=== PATIENT | female | born 1960 | race Caucasian/White ===

== ENCOUNTER 2016-11-02 10:10 | Observation (INO) | payer MEDICARE ==
[2016-11-02] VITALS (9 sets, daily range): BP systolic 129–198; BP diastolic 67–86; PULSE 48–61; RESP 15–19; TEMP 97.6–98.7; O2SAT 94–98
[~2016-11-02] VITALS: Ht 167.6 cm; Wt 85.0 kg
[2016-11-02] MEDS ORDERED: TOPR50TA PO (10:41)
[2016-11-02] MEDS ORDERED: FURO1TAB60 PO (10:41)
[2016-11-02] MEDS ORDERED: CALC500T35 (10:41)
[2016-11-02] MEDS ORDERED: BACL10TA PO (10:41)
[2016-11-02] MEDS ORDERED: SODIUM CHLORIDE 0.9% FLUSH 5 ML FLUSH IV FLUSH PRN (11:15)
--- NOTE | 2016-11-02 11:29 | PD ---
HPI Chief Complaint: Altered Mental Status Time Seen by Provider: 11:00 Travel History International Travel<30 days: No Contact w/Intl Traveler<30days: No Traveled to known affect area: No History of Present Illness HPI This is a 56-year-old female who presents via EMS for evaluation of altered mental status. According to the EMS face sheet she has a history of MS, depression, tremors, CHF, hypertension, previous CVA. On initial examination history was limited to what was written on the EMS face sheet. Apparently the patient has been acting confused since last night. The patient is unable to provide any additional history secondary to confusion. 2325: The patient's has arrived. He reports over the past 2 days the patient has been acting disoriented and confused. For example 2 days ago he found the patient sitting next to a cabinet holding her head in the cabinet and he found her yesterday sleeping on the washing machine. Symptoms were worse this morning which prompted evaluation. She does report that the patient has recently been treated for urinary tract infection, he does not know what antibiotic she was treated with. He reports that she acted similarly one time last year when she was hospitalized for a fever, he does not know what she was eventually diagnosed or treated for. He has no additional history to report at this time. The nurse received a medication list which includes several sedating medications such as baclofen, gabapentin, hydrocodone, clonazepam, lorazepam. PCP Dr. Mcpherson. The patient is a resident of [facility]. [facility] Past Medical History Medical History: Unable to Obtain Tetanus Vaccination: Unknown ?: Not Past Surgical History Surgical History: Unable to Obtain Social History Alcohol Use: No Tobacco Use: No Substance Use: No Allergies-Medications (Allergen,Severity, Reaction): Coded Allergies: Bee Sting (Verified Allergy, Unknown, 11/02/16) Reported Meds & Prescriptions Reported Meds & Active Scripts Active Reported Toprol XL (Metoprolol Succinate) 50 Mg Tab 50 Mg PO BID Calcium (Oyster Shell) 500 Mg Tab Lasix (Furosemide) 40 Mg Tab 40 Mg PO DAILY Baclofen 10 Mg Tab 10 Mg PO BID Review of Systems ROS Limitations: Altered Mental Status Except as stated in HPI: all other systems reviewed are Neg Physical Exam Narrative GENERAL: This is a well-developed well-nourished female who is somewhat drowsy and initial examination but arousable with verbal stimuli. She is alert to person but not place or time. She is able to selectively answer simple questions but when asked more detailed questioning she responds with nonsensical statements. She is able to follow simple commands. SKIN: Warm and dry. HEAD: Atraumatic. Normocephalic. EYES: Pupils equal and round. No scleral icterus. No injection or drainage. ENT: No nasal bleeding or discharge. Mucous membranes pink and moist. NECK: Trachea midline. No JVD. CARDIOVASCULAR: Regular rate and rhythm. No murmur appreciated. RESPIRATORY: No accessory muscle use. Clear to auscultation. Breath sounds equal bilaterally. GASTROINTESTINAL: Abdomen soft, non-tender, nondistended. Hepatic and splenic margins not palpable. MUSCULOSKELETAL: No obvious deformities. There is no upper or lower extremity drift. She has normal psychiatry teacher strength bilaterally. She moves all 4 extremities spontaneously. NEUROLOGICAL: Drowsy but arousable. No obvious cranial nerve deficits. Motor grossly within normal limits. No facial droop. Pupils are equal and round and reactive to light. Data Data Last Documented VS Vital Signs Date Time Temp Pulse Resp B/P Pulse Ox O2 Delivery O2 Flow Rate FiO2 11/02/16 11:33 98 Room Air 11/02/16 10:24 53 18 11/02/16 10:21 97.7 198/86 Orders Electrocardiogram (11/02/16 11:08) Ammonia (11/02/16 11:08) Complete Blood Count With Diff (11/02/16 11:08) Comprehensive Metabolic Panel (11/02/16 11:08) Creatine Kinase (Cpk) (11/02/16 11:08) Prothrombin Time / Inr (Pt) (11/02/16 11:08) Act Partial Throm Time (Ptt) (11/02/16 11:08) Troponin I (11/02/16 11:08) Thyroid Stimulating Hormone (11/02/16 11:08) Urinalysis - C+S If Indicated (11/02/16 11:08) Blood Culture (11/02/16 11:08) Chest, Single Ap (11/02/16 11:08) Ct Brain W/O Iv Contrast(Rout) (11/02/16 11:08) Blood Glucose (11/02/16 11:08) Ecg Monitoring (11/02/16 11:08) Iv Access Insert/Monitor (11/02/16 11:08) Oximetry (11/02/16 11:08) Sodium Chloride 0.9% Flush (Ns Flush) (11/02/16 11:15) Drug Screen, Random Urine (11/02/16 11:08) Lactic Acid Sepsis Protocol (11/02/16 11:18) Labs Laboratory Tests Test 11/02/16 11/02/16 11/02/16 11:10 11:15 11:30 Urine Color YELLOW Urine Turbidity CLEAR Urine pH 5.5 Urine Specific [place] 1.021 Urine Protein 30 mg/dL Urine Glucose (UA) NEG mg/dL Urine Ketones TRACE mg/dL Urine Occult Blood NEG Urine Nitrite NEG Urine Bilirubin NEG Urine Urobilinogen LESS THAN 2.0 MG/DL Urine Leukocyte Esterase NEG Urine WBC LESS THAN 1 /hpf Urine Hyaline Casts 3 /lpf Urine Granular Casts 2 /lpf Urine Mucus FEW /lpf Microscopic Urinalysis Comment CULT NOT INDICATED Urine Opiates Screen POS Urine Barbiturates Screen NEG Urine Amphetamines Screen NEG Urine Benzodiazepines Screen POS Urine Cocaine Screen NEG Urine Cannabinoids Screen NEG White Blood Count 13.3 TH/MM3 Red Blood Count 4.83 MIL/MM3 Hemoglobin 15.0 GM/DL Hematocrit 42.7 % Mean Corpuscular Volume 88.5 FL Mean Corpuscular Hemoglobin 31.0 PG Mean Corpuscular Hemoglobin 35.1 % Concent Red Cell Distribution Width 14.4 % Platelet Count 283 TH/MM3 Mean Platelet Volume 8.6 FL Neutrophils (%) (Auto) 81.2 % Lymphocytes (%) (Auto) 11.6 % Monocytes (%) (Auto) 5.9 % Eosinophils (%) (Auto) 0.7 % Basophils (%) (Auto) 0.6 % Neutrophils # (Auto) 10.8 TH/MM3 Lymphocytes # (Auto) 1.5 TH/MM3 Monocytes # (Auto) 0.8 TH/MM3 Eosinophils # (Auto) 0.1 TH/MM3 Basophils # (Auto) 0.1 TH/MM3 CBC Comment DIFF FINAL Differential Comment Prothrombin Time 10.2 SEC Prothromb Time International 0.9 RATIO Ratio Activated Partial 24.7 SEC Thromboplast Time Sodium Level 143 MEQ/L Potassium Level 3.6 MEQ/L Chloride Level 109 MEQ/L Carbon Dioxide Level 26.5 MEQ/L Anion Gap 8 MEQ/L Blood Urea Nitrogen 11 MG/DL Creatinine 0.89 MG/DL Estimat Glomerular Filtration 65 ML/MIN Rate Random Glucose 82 MG/DL Calcium Level 9.3 MG/DL Total Bilirubin 0.3 MG/DL Aspartate Amino Transf 21 U/L (AST/SGOT) Alanine Aminotransferase 23 U/L (ALT/SGPT) Alkaline Phosphatase 99 U/L Total Creatine Kinase 130 U/L Troponin I LESS THAN 0.02 NG/ML Total Protein 7.9 GM/DL Albumin 4.1 GM/DL Thyroid Stimulating Hormone 0.579 uIU/ML 3rd Gen Lactic Acid Level 0.8 mmol/L Ammonia 25 MCMOL/L [facility] Medical Decision Making Medical Screen Exam Complete: Yes Emergency Medical Condition: Yes Medical Record Reviewed: Yes Interpretation(s) Chest x-ray normal CT brain normal CBC WBC 13.3 Lactic acid normal Ammonia 25 CMP unremarkable Drug screen positive for opiates and benzodiazepines Urinalysis trace ketones, 30 protein Differential Diagnosis Polypharmacy versus sepsis versus UTI versus pneumonia versus CVA versus myxedema versus hyponatremia versus delirium versus encephalitis Narrative Course 56-year-old female presents for evaluation of altered mental status. Plans for basic lab work, CT the brain, EKG. The patient's lab work and imaging studies have been reviewed. Her urinalysis drug screen is positive for benzodiazepines and opiates which is consistent with her medication records. Her workup is otherwise unremarkable. She continues to remain quite altered according to her as well as her daughter who has recently arrived. The plan to be to admit the patient for observation. Discussed with Dr. Perez who is agreeable with admission. Diagnosis Primary Impression: Altered mental status Qualified Code: R41.82 - Altered mental status, unspecified altered mental status type Admitting Information Admitting Physician Requests: Observation Delio Preston Nov 02, 2016 11:29
--- NOTE | 2016-11-02 11:40 | RADRPT ---
EXAM DATE/TIME: 11/02/2016 11:22 [facility] COMPARISON: No previous studies available for comparison. INDICATIONS : Altered mental status. Confused and alert. RADIATION DOSE: 56.35 CTDIvol (mGy) MEDICAL HISTORY : None SURGICAL HISTORY : None. ENCOUNTER: Initial ACUITY: 1 day PAIN SCALE: 0/10 LOCATION: cranial TECHNIQUE: Multiple contiguous axial images were obtained of the head. Using automated exposure control and adj ustment of the mA and/or kV according to patient size, radiation dose was kept as low as reasonably a chievable to obtain optimal diagnostic quality images. DICOM format image data is available electro nically for review and comparison. FINDINGS: CEREBRUM: The ventricles are normal for age. No evidence of midline shift, mass lesion, hemorrhage or acute in farction. No extra-axial fluid collections are seen. POSTERIOR FOSSA: The cerebellum and brainstem are intact. The 4th ventricle is midline. The cerebellopontine angle i s unremarkable. EXTRACRANIAL: The visualized portion of the orbits is intact. SKULL: The calvaria is intact. No evidence of skull fracture. CONCLUSION: Negative for acute process. James Jackson MD FACR on November 02, 2016 at 11:38 Board Certified Radiologist. This report was verified electronically.
--- NOTE | 2016-11-02 11:41 | RADRPT ---
EXAM DATE/TIME: 11/02/2016 11:08 [facility] COMPARISON: No previous studies available for comparison. INDICATIONS : Short of breath. Dizziness. MEDICAL HISTORY : Unobtainable. SURGICAL HISTORY : Unobtainable. ENCOUNTER: Initial ACUITY: 1 day PAIN SCORE: Non-responsive. LOCATION: Bilateral chest FINDINGS: A single view of the chest demonstrates the lungs to be symmetrically aerated without evidence of mas s, infiltrate or effusion. The cardiomediastinal contours are unremarkable. Osseous structures are intact. CONCLUSION: No acute disease. James Jackson MD FACR on November 02, 2016 at 11:39 Board Certified Radiologist. This report was verified electronically.
[2016-11-02 11:51] LABS: AUTOMATED NEUTROPHIL # 10.8 TH/MM3 (1.8-7.7); BASOPHIL # 0.1 TH/MM3 (0-0.2); BASOPHIL % 0.6 % (0.0-2.0); EOSINOPHIL # 0.1 TH/MM3 (0-0.4); EOSINOPHIL % 0.7 % (0.0-4.0); HEMATOCRIT 42.7 % (35.0-46.0); HEMO FLAGS DIFF FINAL; LYMPH % 11.6 % (9.0-44.0); LYMPHOCYTE # 1.5 TH/MM3 (1.0-4.8); MEAN CELL VOLUME 88.5 FL (80.0-100.0); MEAN CORPUSCULAR HGB CONC 35.1 % (32.0-36.0); MONO % 5.9 % (0.0-8.0); NEUT % 81.2 % (16.0-70.0); PLATELET COUNT 283 TH/MM3 (150-450); RED BLOOD COUNT 4.83 MIL/MM3 (4.00-5.30); RED CELL DISTRIBUTION WIDTH 14.4 % (11.6-17.2); WHITE BLOOD COUNT 13.3 TH/MM3 (4.0-11.0)
[2016-11-02 11:56] LABS: BLOOD, URINE NEG (NEG); COMMENT (UR) CULT NOT INDICATED; CULTURE IF INDICATED CULT NOT INDICATED; GLUCOSE,URINE NEG (NEG); GRANULAR CAST, URINE 2 /lpf; HYALINE CAST, URINE 3 /lpf (RARE); KETONE, URINE TRACE mg/dL (NEG); MUCUS URINE FEW /lpf (OCC); NITRITE,URINE NEG (NEG); PH, URINE 5.5 (5.0-8.5); URINE COLOR YELLOW (YELLW/STRAW)
[2016-11-02 12:01] LABS: APTT (PATIENT) 24.7 SEC (24.3-30.1); INTERNATIONAL NORMALIZED RATIO 0.9 RATIO; PROTHROMBIN TIME - PATIENT 10.2 SEC (9.8-11.6)
[2016-11-02 12:08] LABS: AMPHETAMINE, URINE NEG (NEG); BARBITURATES, URINE NEG (NEG); COCAINE, URINE NEG (NEG)
[2016-11-02 12:09] LABS: ALT (GPT) 23 U/L (10-53); ANION GAP 8 MEQ/L (5-15); AST (GOT) 21 U/L (15-37); BICARBONATE 26.5 MEQ/L (21.0-32.0); BLOOD UREA NITROGEN 11 MG/DL (7-18); CHLORIDE 109 MEQ/L (98-107); GLOMERULAR FILTRATION RATE 65 ML/MIN (>89); POTASSIUM 3.6 MEQ/L (3.5-5.1); SODIUM (NA) 143 MEQ/L (136-145)
[2016-11-02 12:19] LABS: ALKALINE PHOSPHATASE 99 U/L (45-117); CREATINE KINASE 130 U/L (26-192); TOTAL BILIRUBIN ADULT 0.3 MG/DL (0.2-1.0)
[2016-11-02] MEDS ORDERED: SENNOSIDES 8.6 MG TAB PO PRN (12:45)
[2016-11-02] MEDS ORDERED: BISACODYL 10 MG SUPP RECTAL PRN (12:45)
[2016-11-02] MEDS ORDERED: SODIUM CHLORIDE 0.9% FLUSH 10 ML FLUSH IV FLUSH PRN (12:45)
[2016-11-02] MEDS ORDERED: LACTULOSE SYRUP 20 GM/30 ML CUP PO PRN (12:45)
[2016-11-02] MEDS ORDERED: ACETAMINOPHEN 325 MG TAB PO PRN (12:45)
[2016-11-02] MEDS ORDERED: NALOXONE HCL 0.4 MG/ML AMP IV PRN (12:45)
[2016-11-02] MEDS ORDERED: hydrALAZINE HCL 20 MG/ML VIAL IV PUSH ONE (12:45)
[2016-11-02] MEDS ORDERED: MAGNESIUM HYDROXIDE SUSP 30 ML CUP PO PRN (12:45)
[2016-11-02] MEDS ORDERED: ONDANSETRON HCL 4 MG/2 ML VIAL IVP PRN (12:45)
--- NOTE | 2016-11-02 12:46 | HHI.HP ---
[facility] Service [place] [facility] Primary Care Physician RILEY Fair Admission Diagnosis altered mental status Diagnoses: Chief Complaint: Lethargy, altered mental status. Travel History International Travel<30 Days: No Contact w/Intl Traveler <30 Da: No Traveled to Known Affected Are: No History of Present Illness Ms. Cruz is a 56 year old female with a history of multiple sclerosis, neuropathy, depression who presented to the emergency department on 11/02/2016 for evaluation of altered mental status. History is mostly obtained from patient 's and daughter at bedside. On Thursday10/31/2016, patient was found to be disoriented and confused. She was holding bookcase and later she was found slouched over the washing machine. Her was able to get patient to the bed. On 11/01/2016, she remained disoriented, confused. On the day of admission, in addition to confusion, disorientation, patient lost control of her bowel and bladder on the couch. After discussing with patient's and daughter, I was able to wake up patient. She was able to tell me her name and that she is in the hospital and it is october. She answers my questions appropriately and follows commands. She denies any chest pain, shortness of breath, fever, chills. She denies any dysuria, hematuria, melena or hematochezia. She reports no focal weakness. No changes in vision or headache. states that this is a significant improvement of her mentation compared to the last two days. Additionally, patient denies any overdose on her medications. She usually manages her own medications. Review of Systems Except as stated in HPI: all other systems reviewed are Neg Past Family Social History Past Medical History Multiple sclerosis Peripheral neuropathy Hypertension Anxiety/depression GERD Past Surgical History Skin graft for peripheral ulcers on legs Rectal suspension surgery For tumor surgery many years ago Reported Medications Gabapentin 800 mg 4 times a day Duloxetine 60 mg twice a day Clonazepam 1 mg twice a day and 0.5 mg by mouth daily when necessary Metoprolol succinate 50 mg by mouth twice a day Amlodipine 10 mg by mouth twice a day Baclofen 10 mg by mouth twice a day Furosemide 40 mg by mouth daily Naproxen 500 mg by mouth twice a day [place]on 103 25 one tablet by mouth daily when necessary Nexium, omeprazole is also listed. Mr. Ye Potassium chloride 20 mEq by mouth daily Cetirizine 10 mg by mouth daily Loratadine 10 mg by mouth daily Allergies: Coded Allergies: Bee Sting (Verified Allergy, Unknown, 11/02/16) Family History Family history is significant for heart disease, cancer. Social History Patient does not use alcohol, tobacco or illicit drugs. Physical Exam Vital Signs Vital Signs Date Time Temp Pulse Resp B/P Pulse Ox O2 Delivery O2 Flow Rate FiO2 11/02/16 11:33 98 Room Air 11/02/16 10:24 97 11/02/16 10:24 53 18 11/02/16 10:21 97.7 198/86 Physical Exam GENERAL: This is a well-nourished, well-developed patient, in no apparent distress. Slightly drowsy but wakes up on verbal commands, answers appropriately. SKIN: No rashes, ecchymoses or lesions. Warm and dry. HEAD: Atraumatic. Normocephalic. No temporal or scalp tenderness. EYES: Pupils equal round and reactive. No injection or drainage. ENT: Nose without bleeding, purulent drainage or septal hematoma. Airway patent. NECK: Trachea midline. No lymphadenopathy. Supple, nontender, no meningeal signs. CARDIOVASCULAR: Regular rate and rhythm without murmurs, gallops, or rubs. No JVD. RESPIRATORY: Clear to auscultation. Breath sounds equal bilaterally. No wheezes , rales, or rhonchi. GASTROINTESTINAL: Abdomen soft, non-tender, nondistended. No guarding. MUSCULOSKELETAL: Extremities without clubbing, cyanosis, or edema. NEUROLOGICAL: Awake and alert. Cranial nerves II through XII intact. No focal neurological deficits. Normal speech. Laboratory Laboratory Tests Test 11/02/16 11/02/16 11/02/16 11:10 11:15 11:30 Urine Color YELLOW Urine Turbidity CLEAR Urine pH 5.5 Urine Specific [place] 1.021 Urine Protein 30 Urine Glucose (UA) NEG Urine Ketones TRACE Urine Occult Blood NEG Urine Nitrite NEG Urine Bilirubin NEG Urine Urobilinogen LESS THAN 2.0 Urine Leukocyte Esterase NEG Urine WBC LESS THAN 1 Urine Hyaline Casts 3 Urine Granular Casts 2 Urine Mucus FEW Microscopic Urinalysis Comment CULT NOT INDICATED Urine Opiates Screen POS Urine Barbiturates Screen NEG Urine Amphetamines Screen NEG Urine Benzodiazepines Screen POS Urine Cocaine Screen NEG Urine Cannabinoids Screen NEG White Blood Count 13.3 Red Blood Count 4.83 Hemoglobin 15.0 Hematocrit 42.7 Mean Corpuscular Volume 88.5 Mean Corpuscular Hemoglobin 31.0 Mean Corpuscular Hemoglobin 35.1 Concent Red Cell Distribution Width 14.4 Platelet Count 283 Mean Platelet Volume 8.6 Neutrophils (%) (Auto) 81.2 Lymphocytes (%) (Auto) 11.6 Monocytes (%) (Auto) 5.9 Eosinophils (%) (Auto) 0.7 Basophils (%) (Auto) 0.6 Neutrophils # (Auto) 10.8 Lymphocytes # (Auto) 1.5 Monocytes # (Auto) 0.8 Eosinophils # (Auto) 0.1 Basophils # (Auto) 0.1 CBC Comment DIFF FINAL Differential Comment Prothrombin Time 10.2 Prothromb Time International 0.9 Ratio Activated Partial 24.7 Thromboplast Time Sodium Level 143 Potassium Level 3.6 Chloride Level 109 Carbon Dioxide Level 26.5 Anion Gap 8 Blood Urea Nitrogen 11 Creatinine 0.89 Estimat Glomerular Filtration 65 Rate Random Glucose 82 Calcium Level 9.3 Total Bilirubin 0.3 Aspartate Amino Transf 21 (AST/SGOT) Alanine Aminotransferase 23 (ALT/SGPT) Alkaline Phosphatase 99 Total Creatine Kinase 130 Troponin I LESS THAN 0.02 Total Protein 7.9 Albumin 4.1 Thyroid Stimulating Hormone 0.579 3rd Gen Lactic Acid Level 0.8 Ammonia 25 Date/Time Procedure Status Source Growth 11/02/16 11:30 Aerobic Blood Culture Received Blood Peripheral Pending 11/02/16 11:30 Anaerobic Blood Culture Received Blood Peripheral Pending Result Diagram: 11/02/16 1115 11/02/16 1115 Imaging Last Impressions Head CT 11/02/16 1108 Signed Impressions: Service Date/Time: Wednesday, November 02, 2016 11:22 - CONCLUSION: Negative for acute process. James Jackson MD FACR Chest X-Ray 11/02/16 1108 Signed Impressions: Service Date/Time: Wednesday, November 02, 2016 11:08 - CONCLUSION: No acute disease. James Jackson MD FACR Assessment and Plan Problem List: (1) Acute metabolic encephalopathy ICD Code: G93.41 Status: Acute (2) Multiple sclerosis ICD Code: G35 Status: Acute (3) Anxiety and depression ICD Code: F41.8 Status: Acute (4) HTN (hypertension) ICD Code: I10 Status: Acute Assessment and Plan Ms. Cruz is a 56-year-old female with a history of multiple sclerosis, anxiety/depression, hypertension who presented to the emergency department on 11/02/2016 due to 2 day duration of confusion, disorientation and lethargy. CT head and chest x-ray shows no acute findings. During our initial interview, patient's reported that patient is already improved as she was responding appropriately and appears to be oriented to name place and time. - Acute metabolic encephalopathy - CT head and chest x-ray reviewed by me. Shows no acute findings. - Patient's symptoms are likely related to medications. - We will hold her medications including gabapentin, duloxetine, clonazepam, [place]on. - We'll continue baclofen as patient apparently has significant muscle spasm/ tremors. - If no significant improvement observed, we will consider further imaging studies as well as neurology consultation on 11/03/2016. - Continue normal saline at 100 cc per hour. - Anxiety/depression - we'll hold clonazepam and duloxetine for now. We'll consider reinstituting anxiety/depression medication gradually. - Peripheral neuropathy - continue to hold gabapentin. - Hypertension - patient takes amlodipine 10 mg twice a day. We'll continue amlodipine 10 mg daily. - Add clonidine 0.1 mg by mouth every 6 hours when necessary. - GERD - continue Protonix 40 mg by mouth daily. Full code. SCDs. Emmie Perez DO Nov 02, 2016 12:46
[2016-11-02] MEDS ORDERED: CETI10 PO (13:05)
[2016-11-02] MEDS ORDERED: GABA800T PO (13:05)
[2016-11-02] MEDS ORDERED: HYDR-3583 PO (13:05)
[2016-11-02] MEDS ORDERED: CLON0.5T PO (13:05)
[2016-11-02] MEDS ORDERED: DULO1CAP3 PO (13:05)
[2016-11-02] MEDS ORDERED: OMEP20TA PO (13:05)
[2016-11-02] MEDS ORDERED: CLAR10CA3 PO (13:05)
[2016-11-02] MEDS ORDERED: NAPR500T PO (13:05)
[2016-11-02] MEDS ORDERED: CLON1TAB PO (13:05)
[2016-11-02] MEDS ORDERED: AMLO10TA2 PO (13:05)
[2016-11-02] MEDS ORDERED: POTA-163 PO (13:05)
[2016-11-02] MEDS ORDERED: NEXI40CA PO (13:05)
[2016-11-02] MEDS: SODIUM CHLOR 0.9% 1000 ML INJ 1,000 ML IV SCH ×2 (13:26→22:43)
[2016-11-02] MEDS ORDERED: PANTOPRAZOLE SOD 40 MG DELAYED RELEASE TAB PO ONE (15:15)
[2016-11-02] MEDS ORDERED: cloNIDine HCL 0.1 MG TAB PO PRN (15:15)
[2016-11-02] MEDS: DOCUSATE SODIUM 50 MG/SENNA 8.6 MG TAB PO SCH (20:19)
[2016-11-02] MEDS: BACLOFEN 10 MG TAB PO SCH (20:19)
[2016-11-02] MEDS: SODIUM CHLORIDE 0.9% FLUSH 10 ML FLUSH IV FLUSH SCH (21:00)
[2016-11-03 00:03] VITALS: BP 133/65; PULSE 58; RESP 17; TEMP 98; O2SAT 94
[2016-11-03 04:12] VITALS: BP 137/71; PULSE 66; RESP 18; TEMP 97.7; O2SAT 95
[2016-11-03 05:15] LABS: AUTOMATED NEUTROPHIL # 3.9 TH/MM3 (1.8-7.7); BASOPHIL # 0.1 TH/MM3 (0-0.2); BASOPHIL % 1.1 % (0.0-2.0); EOSINOPHIL # 0.1 TH/MM3 (0-0.4); EOSINOPHIL % 1.7 % (0.0-4.0); HEMATOCRIT 42.2 % (35.0-46.0); HEMO FLAGS DIFF FINAL; LYMPHOCYTE # 1.4 TH/MM3 (1.0-4.8); MEAN CELL VOLUME 88.7 FL (80.0-100.0); MEAN CORPUSCULAR HEMOGLOBIN 30.2 PG (27.0-34.0); MEAN CORPUSCULAR HGB CONC 34.1 % (32.0-36.0); NEUT % 65.2 % (16.0-70.0); PLATELET COUNT 274 TH/MM3 (150-450); RED BLOOD COUNT 4.76 MIL/MM3 (4.00-5.30); RED CELL DISTRIBUTION WIDTH 14.7 % (11.6-17.2)
[2016-11-03 05:37] LABS: BICARBONATE 25.2 MEQ/L (21.0-32.0); POTASSIUM 3.6 MEQ/L (3.5-5.1)
[2016-11-03 07:40] VITALS: BP 142/80; PULSE 60; RESP 16; TEMP 98.3; O2SAT 94
[2016-11-03 07:45] VITALS: O2SAT 95
[2016-11-03 08:00] VITALS: PULSE 57
[2016-11-03] MEDS: SODIUM CHLOR 0.9% 1000 ML INJ 1,000 ML IV SCH (08:43)
[2016-11-03] MEDS ORDERED: PANTOPRAZOLE SOD 40 MG DELAYED RELEASE TAB PO SCH (09:00)
[2016-11-03] MEDS ORDERED: NAPR500T PO (09:34)
[2016-11-03] MEDS ORDERED: AMLO5 PO (09:34)
[2016-11-03] MEDS ORDERED: CLON0.5T PO (09:34)
[2016-11-03] MEDS ORDERED: GABA100C4 PO (09:34)
[2016-11-03] MEDS: BACLOFEN 10 MG TAB PO SCH (10:00)
[2016-11-03] MEDS: DOCUSATE SODIUM 50 MG/SENNA 8.6 MG TAB PO SCH (10:00)
[2016-11-03] MEDS: SODIUM CHLORIDE 0.9% FLUSH 10 ML FLUSH IV FLUSH SCH (10:01)
--- NOTE | 2016-11-03 11:31 | HHI.PR ---
Subjective Remarks Follow up for acute encephalopathy likely induced by polypharmacy. Patient is much more alert today. Denies any chest pain, SOB, fever, chills. Daughter is at bedside. Objective Vitals Vital Signs Date Time Temp Pulse Resp B/P Pulse Ox O2 Delivery O2 Flow Rate FiO2 11/03/16 08:00 57 11/03/16 07:45 95 21 11/03/16 07:40 98.3 60 16 142/80 94 11/03/16 05:15 21 11/03/16 04:12 97.7 66 18 137/71 95 11/03/16 00:03 98.0 58 17 133/65 94 11/02/16 21:47 18 11/02/16 19:25 97.6 61 18 129/72 94 11/02/16 17:30 60 146/67 11/02/16 15:11 49 11/02/16 14:13 98.7 50 15 179/81 95 11/02/16 13:30 48 19 153/73 97 Room Air 11/02/16 12:56 135/68 11/02/16 11:33 98 Room Air I/O 11/02/16 11/02/16 11/02/16 11/03/16 11/03/16 11/03/16 06:59 14:59 22:59 06:59 14:59 22:59 Intake Total 400 ml 300 ml Balance 400 ml 300 ml Intake Oral 400 ml 300 ml Result Diagram: 11/03/16 0433 11/03/16 0433 Imaging Last Impressions Head CT 11/02/16 1108 Signed Impressions: Service Date/Time: Wednesday, November 02, 2016 11:22 - CONCLUSION: Negative for acute process. James Jackson MD FACR Chest X-Ray 11/02/16 1108 Signed Impressions: Service Date/Time: Wednesday, November 02, 2016 11:08 - CONCLUSION: No acute disease. James Jackson MD FACR Objective Remarks GENERAL: AOX3, NAD. SKIN: Warm and dry. HEAD: Normocephalic. EYES: No scleral icterus. No injection or drainage. NECK: Supple, trachea midline. No JVD or lymphadenopathy. CARDIOVASCULAR: Regular rate and rhythm without murmurs, gallops, or rubs. RESPIRATORY: Breath sounds equal bilaterally. No accessory muscle use. GASTROINTESTINAL: Abdomen soft, non-tender, nondistended. MUSCULOSKELETAL: No cyanosis, or edema. BACK: Nontender without obvious deformity. No CVA tenderness. Procedures None. A/P Problem List: (1) Acute metabolic encephalopathy ICD Code: G93.41 Status: Acute (2) Multiple sclerosis ICD Code: G35 Status: Acute (3) Anxiety and depression ICD Code: F41.8 Status: Acute (4) HTN (hypertension) ICD Code: I10 Status: Acute Assessment and Plan Ms. Cruz is a 56-year-old female with a history of multiple sclerosis, anxiety/depression, hypertension who presented to the emergency department on 11/02/2016 due to 2 day duration of confusion, disorientation and lethargy. CT head and chest x-ray shows no acute findings. During our initial interview, patient's reported that patient is already improved as she was responding appropriately and appears to be oriented to name place and time. - Acute metabolic encephalopathy - CT head and chest x-ray reviewed by me on 11/02/2016. Shows no acute findings. - Patient's symptoms are likely related to polypharmacy. - continue baclofen as patient apparently has significant muscle spasm/ tremors. - Patient appears to be at her baseline. Will discharge her. Discussed at length regarding her medications. - Anxiety/depression - Continue Duloxetine. Continue Clonazepam PRN and use sparingly. - Peripheral neuropathy - continue to gabapentin, reduce dose. - Hypertension - patient takes amlodipine 10 mg twice a day. We'll continue amlodipine 5 mg daily. - In the hospital, clonidine 0.1 mg by mouth every 6 hours when necessary. - GERD - continue Protonix 40 mg by mouth daily. Full code. SCDs. Discharge patient to home Condition on discharge: Improved Heart healthy Diet as tolerated Ad Melody activity Rx New/Changes: New Medications: Clonazepam 0.5 Mg Tab 0.5 MG PO TID PRN tremors, anxiety #30 Ref 0 TAB Gabapentin 100 Mg Cap 200 MG PO TID PRN neuropathic pain #90 Ref 0 CAP Amlodipine (Norvasc) 5 Mg Tab 5 MG PO DAILY Blood Pressure Management #30 TAB Changed Medications: Naproxen 500 Mg Tab 500 MG PO BID PRN pain #60 Ref 0 TAB (Medication details modified) Continued Medications: Baclofen 10 Mg Tab 10 MG PO BID Muscle Spasm Ref 0 TAB Cetirizine 10 Mg Tab 10 MG PO DAILY Allergies Ref [address] 60 Mg Capdr 60 MG PO BID #30 Ref 0 CAP Advised patient to use Clonazepam sparingly. Follow-up with primary care physician within one week. Emmie Perez DO Nov 03, 2016 11:31
--- NOTE | 2016-11-03 14:02 | EKG ---
Date Performed: 11/02/2016 Time Performed: 11:36:50 PTAGE: 56 years EKG: SINUS BRADYCARDIA BORDERLINE ECG NO PREVIOUS TRACING DOCTOR: Yemi Chester Interpretating Date/Time 11/03/2016 14:01:45
[2016-11-04] MEDS ORDERED: amLODIPine BESYLATE 5 MG TAB PO SCH (09:00)
== END 2016-11-03 12:20 | disposition home or self-care (01) ==
LOC: NEPC 10:10 → NEDA 12:44 → NEPGCP 13:53
PROVIDERS: ADMIT Hospitalist; ATTEND Hospitalist
DX: G93.41 Metabolic encephalopathy (principal); G35 Multiple sclerosis; R06.02 Shortness of breath; R00.1 Bradycardia, unspecified; R42 Dizziness and giddiness; I11.0 Hypertensive heart disease with heart failure; I50.9 Heart failure, unspecified; G62.9 Polyneuropathy, unspecified; K21.9 Gastro-esophageal reflux disease without esophagitis; F41.8 Other specified anxiety disorders; Z86.73 Personal history of transient ischemic attack (TIA), and cerebral infarction without residual deficits; Z79.899 Other long term (current) drug therapy
CPT/HCPCS: 70450; 71010; 80048; 80053; 80307; 81001; 82140; 82550; 83605; 84443; 84484; 85025; 85610; 85730; 87040; 93005; 99285; G0378; J7030